=== PATIENT | female | born 1950 | race American Indian/Alaskan Native ===

== ENCOUNTER 2018-07-19 11:47 | Emergency (ER) | payer MEDICARE, OTHER ==
--- NOTE | 2018-07-19 12:35 | Emergency Department Report ---
ED General Adult HPI - General Chief complaint: High BP Stated complaint: HYPERTENSION Time Seen by Provider: 07/19/18 12:35 Source: patient Mode of arrival: Ambulatory Limitations: No Limitations - History of Present Illness Initial comments: Patient is 67-year-old female with a emergency room for management of her high blood pressure. Patient sent here by her primary care due to her blood pressure being over 210 systolic and over 110 diastolic. Patient's initial complaint of going to her primary care was vaginal itching. Patient denies chest pain shortness of breath. Patient denies any physical symptoms except for headache. He states that headache for one week and is 2 out of 10. Patient states that her blood pressure medication for about 6 or 7 months. -: Gradual Consistency: constant Improves with: medication, rest Worsens with: movement Associated Symptoms: headaches. denies: confusion, chest pain, cough, diaphoresis, fever/chills, loss of appetite, malaise, nausea/vomiting, rash, seizure, shortness of breath, syncope, weakness Treatments Prior to Arrival: none - Related Data Previous Rx's Medication Instructions Recorded Last Taken Type Losartan Potassium 50 mg PO DAILY #14 tablet 07/19/18 Unknown Rx cloNIDine [Catapres] 0.2 mg PO BID #28 tablet 07/19/18 Unknown Rx hydroCHLOROthiazide [HCTZ] 25 mg PO QDAY #14 tablet 07/19/18 Unknown Rx Allergies Allergy/AdvReac Type Severity Reaction Status Date / Time Latex, Natural Rubber Allergy Rash Verified 07/19/18 12:14 nickel Allergy Rash Verified 10/05/14 08:20 ED Review of Systems ROS: Stated complaint: HYPERTENSION Other details as noted in HPI Constitutional: denies: chills, fever Eyes: denies: eye pain, eye discharge, vision change ENT: denies: ear pain, throat pain Respiratory: denies: cough, shortness of breath, wheezing Cardiovascular: denies: chest pain, palpitations Endocrine: no symptoms reported Gastrointestinal: denies: abdominal pain, nausea, diarrhea Genitourinary: denies: urgency, dysuria, discharge Musculoskeletal: denies: back pain, joint swelling, arthralgia Skin: denies: rash, lesions Neurological: headache. denies: weakness, paresthesias Psychiatric: denies: anxiety, depression Hematological/Lymphatic: denies: easy bleeding, easy bruising ED Past Medical Hx - Past Medical History Previous Medical History?: Yes Hx Hypertension: Yes Hx CVA: No Hx Heart Attack/AMI: No Hx Congestive Heart Failure: No Hx Diabetes: No Hx Deep Vein Thrombosis: No Hx Pulmonary Embolism: No Hx GERD: No Hx Liver Disease: No Hx Renal Disease: No Hx Sickle Cell Disease: No Hx Arthritis: No Hx Headaches / Migraines: No Hx Seizures: No Hx Kidney Stones: No Hx Psychiatric Treatment: No Hx Asthma: No Hx COPD: No Hx Tuberculosis: No Hx Dementia: No Hx HIV: No - Surgical History Past Surgical History?: Yes Hx Coronary Stent: No Hx Open Heart Surgery: No Hx Pacemaker: No Hx Internal Defibrillator: No Hx Cholecystectomy: No Hx Appendectomy: No Hx Breast Surgery: No Additional Surgical History: TUBAL LIGATION. TONSILLECTOMY - Family History Family history: no significant - Social History Smoking Status: Never Smoker Substance Use Type: Alcohol - Medications Home Medications: Home Medications Medication Instructions Recorded Confirmed Last Taken Type Losartan Potassium 50 mg PO DAILY #14 tablet 07/19/18 Unknown Rx cloNIDine [Catapres] 0.2 mg PO BID #28 tablet 07/19/18 Unknown Rx hydroCHLOROthiazide [HCTZ] 25 mg PO QDAY #14 tablet 07/19/18 Unknown Rx ED Physical Exam - General Limitations: No Limitations General appearance: alert, in no apparent distress - Head Head exam: Present: atraumatic, normocephalic - Eye Eye exam: Present: normal appearance - ENT ENT exam: Present: mucous membranes moist - Neck Neck exam: Present: normal inspection - Respiratory Respiratory exam: Present: normal lung sounds bilaterally. Absent: respiratory distress - Cardiovascular Cardiovascular Exam: Present: regular rate, normal rhythm. Absent: systolic murmur, diastolic murmur, rubs, gallop - GI/Abdominal GI/Abdominal exam: Present: soft, normal bowel sounds - Extremities Exam Extremities exam: Present: normal inspection - Back Exam Back exam: Present: normal inspection - Neurological Exam Neurological exam: Present: alert, oriented X3 - Psychiatric Psychiatric exam: Present: normal affect, normal mood - Skin Skin exam: Present: warm, dry, intact, normal color. Absent: rash ED Course Vital Signs 07/19/18 07/19/18 07/19/18 12:14 12:58 13:00 Temperature 98.1 F Pulse Rate 111 H 95 H 93 H Respiratory 18 13 15 Rate Blood Pressure 263/148 220/115 O2 Sat by Pulse 97 98 96 Oximetry 07/19/18 07/19/18 07/19/18 13:09 13:16 13:30 Temperature Pulse Rate 96 H 86 92 H Respiratory 16 18 Rate Blood Pressure 220/114 203/100 O2 Sat by Pulse 94 94 Oximetry 07/19/18 07/19/18 14:32 15:47 Temperature Pulse Rate 84 80 Respiratory Rate Blood Pressure 216/96 208/92 O2 Sat by Pulse Oximetry - Reevaluation(s) Reevaluation #1: Patient's blood pressure significantly high. Patient will be given medications and we will continue to monitor blood pressure. 07/19/18 12:35 Blood pressure still elevated. Patient will be given a dose of labetalol 07/19/18 14:44 Patient's blood pressure still elevated. Patient will be given clonidine 0.2 mg. Patient states her headache is gone 07/19/18 15:41 Patient's current blood pressure is 186/109. Patient states she is feeling better. Patient is stable for discharge. Patient was discharged home. Medication instructions on how to take her meds. Patient given return to ER instructions. Patient given discharge instructions. Patient was understanding of all instructions. She instructed to monitor blood pressure 3 times a day 07/19/18 15:50 Current blood pressure is 180/105 07/19/18 16:14 ED Medical Decision Making - Lab Data Result diagrams: 07/19/18 13:37 07/19/18 13:37 - Radiology Data Radiology results: report reviewed ct head - nl. CT HEAD WITHOUT CONTRAST: HISTORY: Headache, hypertension. TECHNIQUE: Sequential 2.5mm CT images. COMPARISON: none. FINDINGS: Cerebral Parenchyma: Within normal limits. Cerebellum: Within normal limits. Brainstem: Within normal limits. Ventricles: Normal. Sella: Normal. Extra-axial spaces: Normal. Basal Cisterns: Normal. Intracranial Hemorrhage: None. Midline Shift: None. Calvarium: Normal. Sinuses: Normal. Mastoid Air Cells: Normal. Visualized Orbits: Normal. IMPRESSION: Cranial CT scan within normal limits. Transcribed By: TTR Dictated By: YAMILE CROCKETT JR, MD Electronically Authenticated By: YAMILE CROCKETT JR, MD Signed Date/Time: 07/19/18 2723 - Medical Decision Making Patient is 67-year-old female that presents with elevated blood pressure and headache. Patient is noncompliant with her blood pressure medications for 6 months. Patient given multiple medications and her blood pressure finally improved. Patient will be given clonidine and hydrochlorothiazide which are her old blood pressure medications that she stopped 6 months ago. Patient also given losartan 50 mg. Patient given a new primary care's information. Patient labs unremarkable. Discussed all results with patient. - Differential Diagnosis high blood pressure. Noncompliance. Headache. Critical care attestation.: If time is entered above; I have spent that time in minutes in the direct care of this critically ill patient, excluding procedure time. ED Disposition Clinical Impression: Hypertension Qualifiers: Hypertension type: essential hypertension Qualified Code(s): I10 - Essential (primary) hypertension Headache Qualifiers: Headache type: unspecified Headache chronicity pattern: acute headache In tractability: not intractable Qualified Code(s): R51 - Headache Disposition: DC- TO HOME OR SELFCARE Is pt being admited?: No Does the pt Need Aspirin: No Condition: Stable Instructions: Hypertension (ED) Additional Instructions: Patient to follow-up with primary care in 2-3 days. Patient to follow-up with Dr. Coello. Patient to return to ER if condition worsens. Patient to take meds as directed. Patient is a low-salt heart healthy diet. Patient to rest. Patient increase water. Prescriptions: cloNIDine [Catapres] 0.2 mg PO BID #28 tablet hydroCHLOROthiazide [HCTZ] 25 mg PO QDAY #14 tablet Losartan Potassium 50 mg PO DAILY #14 tablet Referrals: PRIMARY MD ACOSTA [Primary Care Provider] - 2-3 Days JFE COELLO MD [Staff Physician] - 2-3 Days Time of Disposition: 16:14
[2018-07-19] MEDS ORDERED: NORMODYNE IV ONE ×2 (13:04→14:29)
[2018-07-19 13:51] LABS: Hematocrit 40.8 % (30.3-42.9); Hemoglobin 13.6 gm/dl (10.1-14.3); Mean Corpuscular HGB Conc 33 % (30-34); Mean Corpuscular Volume 88 fl (79-97); Platelet Count 254 K/mm3 (140-440); Red Blood Count 4.62 M/mm3 (3.65-5.03); Red Cell Distribution Width 14.6 % (13.2-15.2)
[2018-07-19 14:08] LABS: Alanine Aminotransferase 20 units/L (7-56); Albumin 3.9 g/dL (3.9-5); BUN/Creatinine Ratio 12; Blood Urea Nitrogen 12 mg/dL (7-17); Calcium 9.6 mg/dL (8.4-10.2); Hemolysis Index 32
[2018-07-19 14:12] LABS: Bilirubin,Urine NEG (Negative); Blood,Urine SM (Negative); Color,Urine Yellow (Yellow); Mucus,Urine FEW /HPF; Protein,Urine <15 mg/dL mg/dL (Negative); Urobilinogen,Urine < 2.0 mg/dL (<2.0)
--- NOTE | 2018-07-19 14:54 | Cat Scan Report ---
CT HEAD WITHOUT CONTRAST: HISTORY: Headache, hypertension. TECHNIQUE: Sequential 2.5mm CT images. COMPARISON: none. FINDINGS: Cerebral Parenchyma: Within normal limits. Cerebellum: Within normal limits. Brainstem: Within normal limits. Ventricles: Normal. Sella: Normal. Extra-axial spaces: Normal. Basal Cisterns: Normal. Intracranial Hemorrhage: None. Midline Shift: None. Calvarium: Normal. Sinuses: Normal. Mastoid Air Cells: Normal. Visualized Orbits: Normal. IMPRESSION: Cranial CT scan within normal limits.
[2018-07-19] MEDS ORDERED: APRESOLINE IV ONE (15:35)
[2018-07-19] MEDS ORDERED: CATAPRES PO ONE (15:40)
[2018-07-19 16:31] VITALS: BP 180/105
== END 2018-07-19 16:32 | disposition home or self-care (01) ==
LOC: ED 11:47
DX: I10 Essential (primary) hypertension (principal); N89.8 Other specified noninflammatory disorders of vagina; Z98.51 Tubal ligation status; Z90.89 Acquired absence of other organs; Z91.040 Latex allergy status; Z91.048 Other nonmedicinal substance allergy status
CPT/HCPCS: 36415; 70450; 80053; 81001; 85027; 93005; 93010; 96374; 96376

== ENCOUNTER 2018-11-20 19:36 | Emergency (ER) | payer OTHER ==
--- NOTE | 2018-11-20 21:00 | Emergency Department Report ---
Blank Doc - Documentation Documentation: This is a 68-year-old female that presents with right knee pain and swelling. Patient was sent by PCP to r/o DVT. Stated was running and felt a knee pop. Denies any trauma. This initial assessment/diagnostic orders/clinical plan/treatment(s) is/are subject to change based on patient's health status, clinical progression and re- assessment by fellow clinical providers in the ED. Further treatment and workup at subsequent clinical providers discretion. Patient/guardians urged not to elope from the ED as their condition may be serious if not clinically assessed and managed. Initial orders include: 1- Patient sent to [facility] for further evaluation and treatment 2- knee xray 3- dopper US for r/o DVT
--- NOTE | 2018-11-20 22:46 | XRay Report ---
PROCEDURE: XR KNEE 3V RT TECHNIQUE: 3 views of the right knee obtained. HISTORY: knee pain and swelling COMPARISONS: None FINDINGS: No acute fracture or dislocation. Mild osteoarthritis of the medial compartment. Small to moderate joint effusion noted. IMPRESSION: No acute fracture or dislocation. Mild osteoarthritis of the medial compartment. Small to moderate joint effusion noted. If symptoms persist or worsen, MRI could be considered for further evaluation to exclude ligamentous or meniscal injury.. This document is electronically signed by Apoorva Harris MD., Nov 20 2018 10:44:21 PM ET
[2018-11-21] MEDS ORDERED: TORADOL IM ONE (00:13)
[2018-11-21] MEDS ORDERED: PERCOCET 5/325 PO ONE (00:13)
--- NOTE | 2018-11-21 01:41 | Emergency Department Report ---
ED Lower Extremity HPI - General Chief Complaint: Extremity Injury, Lower Stated Complaint: SWELLING/PAIN RT KNEE Time Seen by Provider: 11/20/18 20:57 Source: patient, family Mode of arrival: Wheelchair Limitations: No Limitations - History of Present Illness Initial Comments: Patient is a 68-year-old female with a history of hypertension and presents with a complaint of acute onset severe persistent right knee pain and swelling after she strained the right knee and heard a "pop" sound on right knee joint when at the gymnasium over 1 week ago. Patient states that in the coarse of following days the right knee pain has worsened and the swelling has increased. Patient states that the pain is worse with any active range of motion of right knee and right leg. Patient states that she was evaluated by her primary care physician who advised her to come to the ED for evaluation using the Doppler ultrasound of right leg to rule out a DVT. Patient however denies shortness of breath, chest pain, dizziness, nausea, vomiting, numbness and tingling of her right lower leg, hip pain or nausea and vomiting. MD Complaint: knee injury (right) -: Sudden, days(s) (10) Injury: Knee: Right (pain, swelling) Type of Injury: hyperflexion Place: other (Gymnasium) Severity: severe Severity scale (0 -10): 7 Improves With: immobilization Worsens With: weight bearing, movement, palpation Context: other (twisted the right knee) Associated Symptoms: snap/pop sensation, swelling, able to partially bear weight, ambulatory. denies: numbness, tingling, unable to bear weight Treatments Prior to Arrival: NSAIDS - Related Data Previous Rx's Medication Instructions Recorded Last Taken Type Losartan Potassium 50 mg PO DAILY #14 tablet 07/19/18 Unknown Rx cloNIDine [Catapres] 0.2 mg PO BID #28 tablet 07/19/18 Unknown Rx hydroCHLOROthiazide [HCTZ] 25 mg PO QDAY #14 tablet 07/19/18 Unknown Rx Baclofen [Lioresal] 10 mg PO Q8H PRN #15 tablet 11/21/18 Unknown Rx predniSONE [Deltasone] 60 mg PO QDAY #15 tab 11/21/18 Unknown Rx traMADol [Ultram] 50 mg PO Q6HR PRN 3 Days #15 tablet 11/21/18 Unknown Rx Allergies Allergy/AdvReac Type Severity Reaction Status Date / Time Latex, Natural Rubber Allergy Rash Verified 07/19/18 12:14 milk Allergy Unknown Verified 11/20/18 19:47 nickel Allergy Rash Verified 10/05/14 08:20 ED Review of Systems ROS: Stated complaint: SWELLING/PAIN RT KNEE Other details as noted in HPI Comment: All other systems reviewed and negative Constitutional: no symptoms reported, see HPI. denies: chills, diaphoresis, fever, malaise Eyes: as per HPI. denies: eye discharge, vision change ENT: as per HPI. denies: ear pain, throat pain, dental pain, hearing loss Respiratory: no symptoms reported, see HPI. denies: cough, shortness of breath, SOB with exertion, SOB at rest, stridor, wheezing Cardiovascular: as per HPI. denies: chest pain, palpitations, dyspnea on exertion, orthopnea, edema, paroxysmal nocturnal dyspnea Endocrine: no symptoms reported, see HPI. denies: excessive sweating, flushing, intolerance to cold, intolerance to heat, increased hunger, increased thirst, increased urine, unexplained weight gain, unexplained weight loss Gastrointestinal: as per HPI. denies: abdominal pain, nausea, vomiting, diarrhea, constipation, hematemesis Genitourinary: as per HPI. denies: urgency, dysuria, frequency, hematuria, abnormal menses, dyspareunia, other Musculoskeletal: as per HPI, joint swelling (right knee), arthralgia (right knee). denies: back pain Skin: as per HPI. denies: rash, lesions, change in color, change in hair/nails, pruritus Neurological: as per HPI. denies: headache, weakness, numbness, paresthesias, confusion, abnormal gait, vertigo, other Psychiatric: as per HPI. denies: anxiety, depression, auditory hallucinations Hematological/Lymphatic: as per HPI ED Past Medical Hx - Past Medical History Hx Hypertension: Yes Hx CVA: No Hx Heart Attack/AMI: No Hx Congestive Heart Failure: No Hx Diabetes: No Hx Deep Vein Thrombosis: No Hx Pulmonary Embolism: No Hx GERD: No Hx Liver Disease: No Hx Renal Disease: No Hx Sickle Cell Disease: No Hx Arthritis: No Hx Headaches / Migraines: No Hx Seizures: No Hx Kidney Stones: No Hx Psychiatric Treatment: No Hx Asthma: No Hx COPD: No Hx Tuberculosis: No Hx Dementia: No Hx HIV: No - Surgical History Hx Coronary Stent: No Hx Open Heart Surgery: No Hx Pacemaker: No Hx Internal Defibrillator: No Hx Cholecystectomy: No Hx Appendectomy: No Hx Breast Surgery: No Additional Surgical History: TUBAL LIGATION. TONSILLECTOMY - Social History Smoking Status: Never Smoker Substance Use Type: None - Medications Home Medications: Home Medications Medication Instructions Recorded Confirmed Last Taken Type Losartan Potassium 50 mg PO DAILY #14 tablet 07/19/18 Unknown Rx cloNIDine [Catapres] 0.2 mg PO BID #28 tablet 07/19/18 Unknown Rx hydroCHLOROthiazide [HCTZ] 25 mg PO QDAY #14 tablet 07/19/18 Unknown Rx Baclofen [Lioresal] 10 mg PO Q8H PRN #15 tablet 11/21/18 Unknown Rx predniSONE [Deltasone] 60 mg PO QDAY #15 tab 11/21/18 Unknown Rx traMADol [Ultram] 50 mg PO Q6HR PRN 3 Days #15 tablet 11/21/18 Unknown Rx ED Physical Exam - General Limitations: No Limitations General appearance: alert, in no apparent distress - Head Head exam: Present: atraumatic, normocephalic, normal inspection - Eye Eye exam: Present: normal appearance, PERRL, EOMI. Absent: scleral icterus, conjunctival injection, periorbital swelling, periorbital tenderness Pupils: Present: normal accommodation. Absent: unequal, mydriatic - ENT ENT exam: Present: normal exam, normal orophraynx, mucous membranes moist, TM's normal bilaterally, normal external ear exam - Neck Neck exam: Present: normal inspection, full ROM. Absent: tenderness, lymphadenopathy, thyromegaly - Respiratory Respiratory exam: Present: normal lung sounds bilaterally. Absent: respiratory distress, wheezes, rales, rhonchi, chest wall tenderness, accessory muscle use, decreased breath sounds, prolonged expiratory - Cardiovascular Cardiovascular Exam: Present: regular rate, normal rhythm, normal heart sounds - GI/Abdominal GI/Abdominal exam: Present: soft, normal bowel sounds. Absent: distended, tenderness, rebound, hyperactive bowel sounds, organomegaly - Rectal Rectal exam: Present: deferred - Extremities Exam Extremities exam: Present: normal inspection, tenderness (right knee), normal capillary refill, joint swelling (right knee). Absent: full ROM (due to severe pain), calf tenderness - Back Exam Back exam: Present: normal inspection, full ROM. Absent: tenderness, CVA tenderness (R), CVA tenderness (L), muscle spasm, paraspinal tenderness, vertebral tenderness - Neurological Exam Neurological exam: Present: alert, oriented X3, CN II-XII intact, normal gait, reflexes normal - Psychiatric Psychiatric exam: Present: normal affect - Skin Skin exam: Present: warm, dry, intact, normal color ED Course Vital Signs 11/20/18 11/20/18 20:08 20:57 Temperature 98.0 F 98.0 F Pulse Rate 69 69 Respiratory 18 18 Rate Blood Pressure 197/90 197/90 O2 Sat by Pulse 97 97 Oximetry - Reevaluation(s) Reevaluation #1: 11/21/18 01:45 Patient is alert and oriented 3 and is nontender distress. Patient was however hypertensive in triage. Patient was treated for pain in the ED and right knee x-ray shows no acute fractures or subluxations but mild degenerative joint disease. The patient right knee was splinted with David wrap and also given crutches to use as needed at home. Patient essentially normal and medications and also received an outpatient referral for Doppler ultrasound of lower extremities and the next day. Patient advised to return to the ED immediately if symptoms get worse. ED Lower Extremity MDM - Radiology Data Radiology results: report reviewed, image reviewed Right knee x-ray shows no acute fractures or subluxations. - Medical Decision Making Patient is alert and oriented 3 and is nontender distress. Patient was however hypertensive in triage. Patient was treated for pain in the ED and right knee x-ray shows no acute fractures or subluxations but mild degenerative joint disease. The patient right knee was splinted with David wrap and also given crutches to use as needed at home. Patient essentially normal and medications and also received an outpatient referral for Doppler ultrasound of lower extremities and the next day. Patient advised to return to the ED immediately if symptoms get worse. - Differential Diagnosis right knee sprain, right knee fracture, right leg DVT Critical care attestation.: If time is entered above; I have spent that time in minutes in the direct care of this critically ill patient, excluding procedure time. ED Disposition Clinical Impression: Sprain of right knee/leg Qualifiers: Encounter type: initial encounter Qualified Code(s): S83.91XA - Sprain of unspecified site of right knee, initial encounter Right knee DJD Qualifiers: Osteoarthritis type: unspecified Qualified Code(s): M17.11 - Unilateral primary osteoarthritis, right knee Contusion of right knee and lower leg Qualifiers: Encounter type: initial encounter Qualified Code(s): S80.01XA - Contusion of right knee, initial encounter; S80.11XA - Contusion of right lower leg, initial encounter Disposition: TO HOME OR SELFCARE Is pt being admited?: No Does the pt Need Aspirin: No Condition: Stable Instructions: Knee Sprain (ED), Contusion in Adults (ED), Muscle Spasm (ED), Osteoarthritis (ED) Additional Instructions: Take medications with food, drink plenty of fluids and follow-up with your primary care physician in 5-7 days for reevaluation. Contact the number provided to know when to come back today Hospital for the Doppler ultrasound studies of the lower extremities. Otherwise return to the ED immediately if symptoms get worse. Prescriptions: predniSONE [Deltasone] 60 mg PO QDAY #15 tab Baclofen [Lioresal] 10 mg PO Q8H PRN #15 tablet PRN Reason: Spasms traMADol [Ultram] 50 mg PO Q6HR PRN 3 Days #15 tablet PRN Reason: Pain Referrals: YARED HER MD [Primary Care Provider] - 3-5 Days Time of Disposition: 01:50 Print Language: CITIZEN OF [place]
[2018-11-21 02:43] VITALS: BP 168/82
== END 2018-11-21 02:32 | disposition home or self-care (01) ==
LOC: ED 19:36
DX: S83.91XA Sprain of unspecified site of right knee, initial encounter (principal); S80.01XA Contusion of right knee, initial encounter; S80.11XA Contusion of right lower leg, initial encounter; M17.11 Unilateral primary osteoarthritis, right knee; I10 Essential (primary) hypertension; Z98.51 Tubal ligation status; Z90.89 Acquired absence of other organs; Z91.040 Latex allergy status; Z91.011 Allergy to milk products; Z91.048 Other nonmedicinal substance allergy status; X58.XXXA Exposure to other specified factors, initial encounter; Y93.89 Activity, other specified; Y92.39 Other specified sports and athletic area as the place of occurrence of the external cause; Y99.8 Other external cause status
CPT/HCPCS: 73562; 96372; 99284; J1885

== ENCOUNTER 2019-04-22 09:27 | Inpatient (IN) | payer MEDICARE, OTHER ==
[2019-04-22] MEDS ORDERED: ASPIRIN PO ONE (09:33)
[2019-04-22 10:04] LABS: Basophils # (Auto) 0.1 K/mm3 (0.0-0.1); Basophils % (Auto) 0.8 % (0.0-1.8); Eosinophils # (Auto) 0.1 K/mm3 (0.0-0.4); Eosinophils % (Auto) 0.5 % (0.0-4.3); Hematocrit 41.5 % (30.3-42.9); Hemoglobin 13.7 gm/dl (10.1-14.3); Lymphocytes # (Auto) 2.9 K/mm3 (1.2-5.4); Lymphocytes % (Auto) 29.1 % (13.4-35.0); Mean Corpuscular HGB Conc 33 % (30-34); Mean Corpuscular Volume 88 fl (79-97); Monocytes # (Auto) 0.9 K/mm3 (0.0-0.8); Monocytes % (Auto) 8.9 % (0.0-7.3); Platelet Count 274 K/mm3 (140-440); Red Blood Count 4.73 M/mm3 (3.65-5.03); Red Cell Distribution Width 14.7 % (13.2-15.2)
--- NOTE | 2019-04-22 10:14 | Emergency Department Report ---
ED Chest Pain HPI - General Chief Complaint: Chest Pain Stated Complaint: CHEST PAIN/ABN EKG Time Seen by Provider: 04/22/19 10:12 Source: patient Mode of arrival: Ambulatory Limitations: No Limitations - History of Present Illness Initial Comments: 68-year-old -[place] female patient with history of uncontrolled hypertension complains of chest pain 2 days. She was sent here from urgent care due to her symptoms and abnormal EKG. Patient states the pain is a dull pressure that is constant and left sided and that radiates down her left arm. Positive family history of heart disease in her mother. She denies any shortness of breath. She admits to recent long travel via 4 hour car ride. She denies history of MA/CVA/DVT/PE or lower leg pain or swelling. MD Complaint: chest pain Severity scale (0 -10): 3 Quality: dull, pressure Consistency: constant Improves With: nothing Worsens With: nothing re: denies: nausea, vomting, dyspnea Other Symptoms: denies: cough, fever, syncope Treatments Prior to Arrival: none - Related Data Previous Rx's Medication Instructions Recorded Last Taken Type Losartan Potassium 50 mg PO DAILY #14 tablet 07/19/18 Unknown Rx cloNIDine [Catapres] 0.2 mg PO BID #28 tablet 07/19/18 Unknown Rx hydroCHLOROthiazide [HCTZ] 25 mg PO QDAY #14 tablet 07/19/18 Unknown Rx Baclofen [Lioresal] 10 mg PO Q8H PRN #15 tablet 11/21/18 Unknown Rx predniSONE [Deltasone] 60 mg PO QDAY #15 tab 11/21/18 Unknown Rx traMADol [Ultram] 50 mg PO Q6HR PRN 3 Days #15 tablet 11/21/18 Unknown Rx Allergies Allergy/AdvReac Type Severity Reaction Status Date / Time Latex, Natural Rubber Allergy Rash Verified 04/22/19 10:12 milk Allergy Unknown Verified 04/22/19 10:12 nickel Allergy Rash Verified 04/22/19 10:12 Heart Score - HEART Score History: Slightly suspicious EKG: Non-specific Age: > 65 Risk factors: 1-2 risk factors Troponin: < normal limit HEART Score: 4 - Critical Actions Critical Actions: 4-6 pts:12-16.6% risk of adverse cardiac event. Should be admitted ED Review of Systems ROS: Stated complaint: CHEST PAIN/ABN EKG Other details as noted in HPI Comment: All other systems reviewed and negative Constitutional: no symptoms reported Respiratory: denies: shortness of breath, SOB with exertion, SOB at rest Cardiovascular: chest pain. denies: palpitations, edema, syncope Gastrointestinal: as per HPI ED Past Medical Hx - Past Medical History Previous Medical History?: Yes Hx Hypertension: Yes Hx CVA: No Hx Heart Attack/AMI: No Hx Congestive Heart Failure: No Hx Diabetes: No Hx Deep Vein Thrombosis: No Hx Pulmonary Embolism: No Hx GERD: No Hx Liver Disease: No Hx Renal Disease: No Hx Sickle Cell Disease: No Hx Arthritis: No Hx Headaches / Migraines: No Hx Seizures: No Hx Kidney Stones: No Hx Psychiatric Treatment: No Hx Asthma: No Hx COPD: Yes Hx Tuberculosis: No Hx Dementia: No Hx HIV: No Additional medical history: abnormal EKG, Lung problems - Surgical History Past Surgical History?: Yes Hx Coronary Stent: No Hx Open Heart Surgery: No Hx Pacemaker: No Hx Internal Defibrillator: No Hx Cholecystectomy: No Hx Appendectomy: No Hx Breast Surgery: No Additional Surgical History: TUBAL LIGATION. TONSILLECTOMY - Social History Smoking Status: Never Smoker Substance Use Type: Alcohol, Prescribed - Medications Home Medications: Home Medications Medication Instructions Recorded Confirmed Last Taken Type Losartan Potassium 50 mg PO DAILY #14 tablet 07/19/18 Unknown Rx cloNIDine [Catapres] 0.2 mg PO BID #28 tablet 07/19/18 Unknown Rx hydroCHLOROthiazide [HCTZ] 25 mg PO QDAY #14 tablet 07/19/18 Unknown Rx Baclofen [Lioresal] 10 mg PO Q8H PRN #15 tablet 11/21/18 Unknown Rx predniSONE [Deltasone] 60 mg PO QDAY #15 tab 11/21/18 Unknown Rx traMADol [Ultram] 50 mg PO Q6HR PRN 3 Days #15 tablet 11/21/18 Unknown Rx ED Physical Exam - General Limitations: No Limitations General appearance: alert, in no apparent distress - Head Head exam: Present: atraumatic, normocephalic - Eye Eye exam: Present: normal appearance - Neck Neck exam: Present: normal inspection - Respiratory Respiratory exam: Present: normal lung sounds bilaterally. Absent: respiratory distress, wheezes, rales, rhonchi, chest wall tenderness - Cardiovascular Cardiovascular Exam: Present: regular rate, normal rhythm, normal heart sounds. Absent: systolic murmur, diastolic murmur, rubs, gallop - GI/Abdominal GI/Abdominal exam: Present: soft, normal bowel sounds. Absent: distended, tenderness - Extremities Exam Extremities exam: Present: normal inspection, calf tenderness (left ). Absent: pedal edema, joint swelling - Neurological Exam Neurological exam: Present: alert, oriented X3 - Psychiatric Psychiatric exam: Present: normal affect, normal mood - Skin Skin exam: Present: warm, dry, intact, normal color. Absent: rash ED Course Vital Signs 04/22/19 04/22/19 04/22/19 09:28 10:56 11:38 Temperature 98.1 F Pulse Rate 69 80 Respiratory 18 12 Rate Blood Pressure 239/129 187/93 Blood Pressure [Right] O2 Sat by Pulse 97 Oximetry 04/22/19 04/22/19 13:05 14:18 Temperature Pulse Rate 78 74 Respiratory 16 16 Rate Blood Pressure Blood Pressure 215/99 140/81 [Right] O2 Sat by Pulse 98 Oximetry ED Medical Decision Making - Lab Data Result diagrams: 04/22/19 09:44 04/22/19 09:44 Lab Results 04/22/19 04/22/19 04/22/19 Range/Units 09:44 09:44 12:33 WBC 10.0 (4.5-11.0) K/mm3 RBC 4.73 (3.65-5.03) M/mm3 Hgb 13.7 (10.1-14.3) gm/dl Hct 41.5 (30.3-42.9) % MCV 88 (79-97) fl MCH 29 (28-32) pg MCHC 33 (30-34) % RDW 14.7 (13.2-15.2) % Plt Count 274 (140-440) K/mm3 Lymph % (Auto) 29.1 (13.4-35.0) % [place] % (Auto) 8.9 H (0.0-7.3) % Eos % (Auto) 0.5 (0.0-4.3) % Baso % (Auto) 0.8 (0.0-1.8) % Lymph # 2.9 (1.2-5.4) K/mm3 Anderson # 0.9 H (0.0-0.8) K/mm3 Eos # 0.1 (0.0-0.4) K/mm3 Baso # 0.1 (0.0-0.1) K/mm3 Seg Neutrophils % 60.7 (40.0-70.0) % Seg Neutrophils # 6.1 (1.8-7.7) K/mm3 Sodium 144 (137-145) mmol/L Potassium 3.3 L (3.6-5.0) mmol/L Chloride 104.7 (98-107) mmol/L Carbon Dioxide 23 (22-30) mmol/L Anion Gap 20 mmol/L BUN 14 (7-17) mg/dL Creatinine 0.8 (0.7-1.2) mg/dL Estimated GFR > 60 ml/min BUN/Creatinine Ratio 18 % Glucose 98 (65-100) mg/dL Calcium 9.4 (8.4-10.2) mg/dL Troponin T < 0.010 < 0.010 (0.00-0.029) ng/mL - Radiology Data Radiology results: report reviewed CHEST 2 VIEWS INDICATION / CLINICAL INFORMATION: MAIN: Chest Pain FOR 2 DAY. COMPARISON: None available. FINDINGS: SUPPORT DEVICES: None. HEART / MEDIASTINUM: Heart is upper normal size. LUNGS / PLEURA: No significant pulmonary or pleural abnormality. No pneumothorax. ADDITIONAL FINDINGS: No significant additional findings. IMPRESSION: 1. No acute findings. DUPLEX DOPPLER LOWER EXTREMITY VEINS, LEFT INDICATION: pain, recent long travel. TECHNIQUE: Duplex doppler imaging was performed through the veins of the left lower extr emity using venous compression and other maneuvers. COMPARISON: None available. FINDINGS: Common Femoral vein: Negative. Superficial Femoral vein: Negative. Popliteal vein: Negative. Calf veins: Negative. Additional findings: None. IMPRESSION: 1. No sonographic evidence for DVT in the left lower extremity. - Medical Decision Making 68-year-old female here with new onset of chest pain 2 days. Initial and repeat troponin and EKGs are WNL. Chest x-ray is WNL. Heart score = 4. Ultrasound negative for DVT. D-dimer added. Discussed patient with Dr. Alonso, hospitalistpatient to be admitted to hospital for further evaluation. Vitals remain stable. Blood pressure improved, now 140/81. Critical care attestation.: If time is entered above; I have spent that time in minutes in the direct care of this critically ill patient, excluding procedure time. ED Disposition Clinical Impression: Chest pain, Uncontrolled hypertension Disposition: DC-09 OP ADMIT IP TO THIS HOSP Is pt being admited?: Yes Does the pt Need Aspirin: No Condition: Stable
[2019-04-22 10:19] LABS: BUN/Creatinine Ratio 18; Blood Urea Nitrogen 14 mg/dL (7-17); Calcium 9.4 mg/dL (8.4-10.2); Hemolysis Index 4
--- NOTE | 2019-04-22 10:29 | XRay Report ---
CHEST 2 VIEWS INDICATION / CLINICAL INFORMATION: MAIN: Chest Pain FOR 2 DAY. COMPARISON: None available. FINDINGS: SUPPORT DEVICES: None. HEART / MEDIASTINUM: Heart is upper normal size. LUNGS / PLEURA: No significant pulmonary or pleural abnormality. No pneumothorax. ADDITIONAL FINDINGS: No significant additional findings. IMPRESSION: 1. No acute findings. Signer Name: Harjinder Landa MD Signed: 04/22/2019 10:24 AM Workstation Name: [id number]
[2019-04-22] MEDS ORDERED: APRESOLINE IV ONE (10:31)
--- NOTE | 2019-04-22 11:49 | Vascular Lab Report ---
DUPLEX DOPPLER LOWER EXTREMITY VEINS, LEFT INDICATION: pain, recent long travel. TECHNIQUE: Duplex doppler imaging was performed through the veins of the left lower extremity using venous compr ession and other maneuvers. COMPARISON: None available. FINDINGS: Common Femoral vein: Negative. Superficial Femoral vein: Negative. Popliteal vein: Negative. Calf veins: Negative. Additional findings: None. IMPRESSION: 1. No sonographic evidence for DVT in the left lower extremity. Signer Name: Jono Higgins MD Signed: 04/22/2019 11:44 AM Workstation Name: [id number]
[2019-04-22] MEDS ORDERED: K-DUR PO ONE ×2 (13:26→15:18)
[2019-04-22] MEDS ORDERED: TYLENOL PO PRN (21:48)
[2019-04-22] MEDS ORDERED: DILAUDID IV PRN (21:48)
[2019-04-22] MEDS ORDERED: ZOFRAN IV PRN (21:48)
[2019-04-22] MEDS ORDERED: PERCOCET 5/325 PO PRN (21:48)
[2019-04-22] MEDS ORDERED: SODIUM CHLORIDE FLUSH SYRINGE 10 ML IV PRN (21:48)
[2019-04-23] MEDS: PEPCID PO SCH ×3 (01:54→22:09)
[2019-04-23] MEDS: CATAPRES PO SCH ×2 (01:54→13:07)
[2019-04-23] MEDS: NORVASC PO SCH ×2 (01:54→13:08)
[2019-04-23] MEDS: SODIUM CHLORIDE FLUSH SYRINGE 10 ML IV SCH ×3 (01:55→22:10)
[2019-04-23 05:43] LABS: Basophils # (Auto) 0.1 K/mm3 (0.0-0.1); Basophils % (Auto) 1.1 % (0.0-1.8); Eosinophils # (Auto) 0.2 K/mm3 (0.0-0.4); Eosinophils % (Auto) 3.3 % (0.0-4.3); Hematocrit 38.3 % (30.3-42.9); Hemoglobin 12.9 gm/dl (10.1-14.3); Lymphocytes # (Auto) 3.2 K/mm3 (1.2-5.4); Lymphocytes % (Auto) 46.7 % (13.4-35.0); Mean Corpuscular HGB Conc 34 % (30-34); Mean Corpuscular Volume 87 fl (79-97); Monocytes # (Auto) 0.6 K/mm3 (0.0-0.8); Monocytes % (Auto) 8.6 % (0.0-7.3); Platelet Count 273 K/mm3 (140-440)
[2019-04-23 06:12] LABS: Alanine Aminotransferase 10 units/L (7-56); Albumin 3.7 g/dL (3.9-5); BUN/Creatinine Ratio 17; Blood Urea Nitrogen 15 mg/dL (7-17); Hemolysis Index 2
--- NOTE | 2019-04-23 06:55 | Event Note ---
Date: 04/22/19 See H/p in reports Chest pain-R/o LA
[2019-04-23] MEDS ORDERED: APRESOLINE IV PRN (07:00)
[2019-04-23] MEDS ORDERED: K-DUR PO NR (07:12)
--- NOTE | 2019-04-23 08:01 | History and Physical Report ---
CHIEF COMPLAINT: Chest pain for 2 days. HISTORY OF PRESENT ILLNESS: A 68-year-old -[place] female with history of hypertension, comes in for left-sided chest pain for 2 days. The patient was sent from urgent care for abnormal EKG. Chest pain is retrosternal, dull in character, radiates down the left arm. No diaphoresis. No shortness of breath. The patient had a recent long [address] No history of [place] or coronary artery disease. PAST MEDICAL HISTORY: As mentioned, hypertension and COPD. PAST SURGICAL HISTORY: Tubal ligation and tonsillectomy. SOCIAL HISTORY: Does not smoke. No alcohol, no recreational drugs. FAMILY HISTORY: Hypertension. REVIEW OF SYSTEMS: Significant for chest pain, which is retrosternal and high blood pressure. Otherwise, review of systems negative. PHYSICAL EXAMINATION: GENERAL: Elderly female, cooperative during examination. VITAL SIGNS: Initial blood pressure was 239/129, temperature is 98.1, pulse is 69, respirations 18. HEENT: Unremarkable. Pupils equal and reactive. NECK: Supple, no lymphadenopathy, no thyromegaly. LUNGS: Clear to auscultation and percussion. Good air entry. CARDIOVASCULAR SYSTEM: S1, S2 heard. No gallop, no murmur, no rub. Apical impulse in left fifth intercostal space and midclavicular line. ABDOMEN: Soft and benign. No hepatosplenomegaly. No guarding, no rigidity. Hernial orifices are normal. EXTREMITIES: Good pedal pulses. No pedal edema. CENTRAL NERVOUS SYSTEM: Alert and oriented x 4, nonfocal exam. SKIN: Normal. LABORATORY DATA: CBC is normal. Electrolytes are normal. Potassium is 3.3. Troponin is less than 0.010. EKG shows sinus rhythm, heart rate of 78 per minute, left ventricular hypertrophy. Chest x-ray, no acute findings. Lower extremity duplex scan, no acute findings. ASSESSMENT AND PLAN: 1. Hypertensive emergency. The patient initiated on IV hydralazine 10 mg q.3h p.r.n. Also, amlodipine 10 mg once a day, clonidine 0.2 b.i.d. 2. Chest pain, rule out myocardial infarction, chest pain protocol. Serial troponins. Exercise stress test in the morning. Cardiology consult requested. 3. Deep venous thrombosis prophylaxis, Lovenox 40 mg subcutaneously daily and gastrointestinal prophylaxis initiated. JOB# [id number] MAURO/ABHINAV VEGA
--- NOTE | 2019-04-23 13:03 | Discharge Summary ---
Providers - Providers Date of Admission: 04/22/19 13:35 Date of discharge: 04/24/19 Attending physician: SHAYNA ROBB 04/22/19 21:48 Consult to Physician [CONS] Routine Comment: Consulting Provider: MAURICE SILVA Physician Instructions: Reason For Exam: Chest pain Primary care physician: EFRAIN BRIONES MD Hospitalization Condition: Stable Pertinent studies: Chest x-ray Lower extremity Doppler MPS stress test Hospital course: 68-year-old female with a history of hypertension presented to the ER with complaints of Retrosternal chest pain for 4 today's . Patient was evaluated in the ER, initial cardiac enzyme and EKG was unremarkable, chest x-ray showed no infiltrates. Patient was admitted and underwent myocardial stress test which was normal. Her blood pressure was monitored and resumed on home medications, suggested BP meds to better control her blood pressure. Patient was then discharged home in stable condition with outpatient follow-up. Discharge diagnosis: Atypical chest pain, likely due to GERD and uncontrolled blood pressure Hypertensive emergency, blood pressure was stable on discharge Disposition: DC/TX-06 HOME UNDER HOME [facility] Time spent for discharge: 34 minutes Core Measure Documentation - Palliative Care Palliative Care/ Comfort Measures: Not Applicable - Core Measures Any of the following diagnoses?: none Exam - Constitutional Vitals: Temp Pulse Resp BP Pulse Ox 98.0 F 62 22 139/69 98 04/23/19 03:46 04/23/19 08:55 04/23/19 08:16 04/23/19 03:46 04/23/19 03:46 General appearance: Present: no acute distress, well-nourished - EENT Eyes: Present: PERRL ENT: hearing intact, clear oral mucosa - Neck Neck: Present: supple, normal ROM - Respiratory Respiratory effort: normal Respiratory: bilateral: CTA - Cardiovascular Heart Sounds: Present: S1 & S2. Absent: rub, click - Extremities Extremities: pulses symmetrical, No edema Peripheral Pulses: within normal limits - Abdominal General gastrointestinal: Present: soft, non-tender, non-distended, normal bowel sounds - Integumentary Integumentary: Present: clear, warm, dry - Musculoskeletal Musculoskeletal: gait normal, strength equal bilaterally - Psychiatric Psychiatric: appropriate mood/affect, intact judgment & insight - Neurologic Neurologic: CNII-XII intact, moves all extremities Plan Activity: advance as tolerated Weight Bearing Status: Weight Bear as Tolerated Diet: low fat, low salt Follow up with: PRIMARY CARE, [Referring] - 3-5 Days Prescriptions: Aspirin EC [Halfprin EC] 81 mg PO QDAY #30 tablet. Pantoprazole [Protonix] 40 mg PO QDAY #30 tablet
[2019-04-23] MEDS: ASPIRIN PO SCH (13:18)
[2019-04-23] MEDS: APRESOLINE PO SCH ×2 (13:18→22:09)
--- NOTE | 2019-04-23 13:31 | Progress Note ---
Assessment and Plan Chest pain, rule out ACS - Continue to trend troponin, aspirin and statin - Stressed is postponed for tomorrow because of elevated blood pressure - Continue to monitor for now, nitroglycerin patch as needed Hypertensive emergency - Resume home meds - amlodipine and clonidine - Hydralazine IV as needed, also added by mouth hydralazine 50 every 8 hours - We will also adjust medications Obesity, diet and exercise recommendation when clinically stable DVT prophylaxis, on Lovenox Subjective Date of service: 04/23/19 Interval history: Patient seen and examined. Medical records and medication list reviewed. No acute event overnight noted by the RN. Patient is tolerating diet. Continue to stress to discuss her systole blood pressure was about 200 Discussed plan of care at bedside with patient. Objective - Exam Narrative Exam: GENERAL: well-developed and obese -[place] female lying on bed appeared to be in no discomfort. HEENT: Normocephalic. Atraumatic. No conjunctival congestion or icterus. Patient has moist mucous membranes. NECK: Supple. Trachea midline. CHEST/LUNGS: Clear to auscultated bilaterally, breathing nonlabored. No wheezes crackles or rhonchi. HEART/CARDIOVASCULAR: Regular in rate and rhythm. S1 and S2 positive. ABDOMEN: Abdomen is soft, nontender. Patient has normal bowel sounds. SKIN: There is no rash. Warm and dry. NEURO: No focal motor deficit. Follows command. MUSCULOSKELETAL: No joint effusion or tenderness. EXTRIMITY: No edema, no cyanosis or clubbing. PSYCH: Cooperative. - Constitutional Vitals: Vital Signs - 12hr 04/23/19 04/23/19 04/23/19 03:46 06:00 08:16 Temperature 98.0 F Pulse Rate 61 61 Respiratory 18 22 Rate Blood Pressure 139/69 O2 Sat by Pulse 98 Oximetry 04/23/19 08:55 Temperature Pulse Rate 62 Respiratory Rate Blood Pressure O2 Sat by Pulse Oximetry - Labs CBC & Chem 7: 04/23/19 05:00 04/23/19 05:00 Labs: Abnormal lab results 04/22/19 04/23/19 04/23/19 Range/Units 20:39 05:00 05:00 Lymph % (Auto) 46.7 H (13.4-35.0) % [place] % (Auto) 8.6 H (0.0-7.3) % D-Dimer 253.93 H (0-234) ng/mlDDU Albumin 3.7 L (3.9-5) g/dL
--- NOTE | 2019-04-23 13:52 | Event Note ---
Date: 04/23/19 Detailed cardiology consultation dictated. Stress test cancelled this morning due to hypertensive urgency. Will optimize BPs and reattempt lexiscan MPI stress test in AM pending BPs are improved. NPO after MN. Idris BURNETT NP / DR. LONG
[2019-04-23] MEDS ORDERED: CATAPRES PO SCH (22:00)
[2019-04-23] MEDS ORDERED: LOVENOX SUB-Q SCH (22:00)
--- NOTE | 2019-04-24 01:18 | Consultation ---
REQUESTING PHYSICIN: Dr. Winchester. HISTORY OF PRESENT ILLNESS: This is a 68-year-old -[place] female who is now presenting to the hospital with complaints of chest pain of 2 days' duration for further evaluation and management. History is now obtained from the patient. The patient states that she is known to have hypertension and chronic obstructive pulmonary disease. States that she has been taking her medications regularly. She has been doing reasonably well, but then about 2 days ago, she started noticing left-sided chest pain, which then radiated across the anterior chest. It also did radiate down the left arm according to her. It felt like heaviness or tightness. She also describes it as a sharp pain. There is no typical history of orthopnea or PND. No edema of feet. No palpitation, claudication, dizziness or syncope. With these complaints, the patient was seen in the urgent care where the EKG was noted to be abnormal and so the patient was advised to come to the Emergency Room. PAST MEDICAL HISTORY: Positive for hypertension and COPD as mentioned. PAST SURGICAL HISTORY: Includes tonsillectomy and tubal ligation. SOCIAL HISTORY: The patient is a nonsmoker and nonalcoholic. ALLERGIES: None known. FAMILY HISTORY: Positive for hypertension. MEDICATIONS: As listed. REVIEW OF SYSTEMS: CARDIOVASCULAR: As described above. RESPIRATORY: The patient denies any history of wheezing or asthma. No GI or complaints at the present time. NEUROLOGIC: Grossly within normal limits. PHYSICAL EXAMINATION: GENERAL: This is a 68-year-old female, well-built, well-nourished, no acute distress at the present time. The patient is conscious, alert, oriented, afebrile. VITAL SIGNS: Normal and stable, although her blood pressure was markedly elevated here in the hospital. SKIN: Warm and dry. HEENT: Pupils reacting. NECK: Supple. Both carotids well palpable without any significant bruit. No JVD. CHEST: Lungs are clear. Distant breath sounds. HEART: S1, S2 heard well. Grade 1/6 systolic murmur noted. No diastolic murmur, no gallop rhythm. ABDOMEN: Soft and nontender. Bowel sounds well heard, normal. EXTREMITIES: No edema, no calf tenderness. Good pedal pulses. NEUROLOGICAL: Grossly within normal limits. RECTAL AND PELVIC: Not done at this time. IMPRESSION: 1. Hypertensive emergency. 2. Chest pain, questionable cause, rule out cardiac etiology. PLAN: This is a 68-year-old female with history of hypertension, who is presenting here with complaints of chest pain of 2 days' duration. At this time, the patient's examination is unremarkable. EKG did not show any acute changes. Her blood pressure is markedly elevated, but otherwise her vital signs are stable. So, our goal is to get the blood pressure under control. Then we will consider doing a thallium stress test to rule out any cardiac etiology for her chest pain, although it is very atypical. I reviewed the medications. Continue piperacillin 50 mg t.i.d., amlodipine 10 mg daily, clonidine 0.2 mg at bedtime, atorvastatin 40 mg daily. We will monitor blood pressure closely. Because of markedly elevated blood pressure, we could not do the stress test today. I have explained all this in detail to the patient. The patient expressed understanding. We will follow the patient along with you. JOB# [id number] SHAY/ABHINAV
[2019-04-24] MEDS: APRESOLINE PO SCH (05:12)
[2019-04-24] MEDS ORDERED: LEXISCAN IV ONE ×2 (06:52→07:42)
[2019-04-24] MEDS ORDERED: APRESOLINE PO SCH ×3 (10:37→16:00)
[2019-04-24] MEDS: NORVASC PO SCH (11:02)
[2019-04-24] MEDS: PEPCID PO SCH (11:02)
[2019-04-24] MEDS: ASPIRIN PO SCH (11:02)
[2019-04-24] MEDS: SODIUM CHLORIDE FLUSH SYRINGE 10 ML IV SCH (11:03)
--- NOTE | 2019-04-24 11:16 | Progress Note ---
Assessment and Plan S/p lexiscan MPI stress test this morning which was negative. Optimize BPs - hydralazine increased today per primary team. Currently stable cardiac status. Pt may discharge from cardiology standpoint. Recommend pt follow up in our office with Dr. Cruz within 1-2 weeks of discharge ([phone]). The patient has been seen in conjunction with Dr. Cruz who agrees with the assessment and plan of care. - Patient Problems (1) Chest pain Current Visit: Yes Status: Resolved (2) Uncontrolled hypertension Current Visit: Yes Status: Acute Subjective Date of service: 04/24/19 Principal diagnosis: cp;htn Interval history: pt for stress test. no current complaints. in SR. Objective Last Vital Signs Temp 98.5 F 04/24/19 07:29 Pulse 68 04/24/19 11:02 Resp 16 04/24/19 11:00 BP 171/76 04/24/19 11:02 Pulse Ox 97 04/24/19 11:00 - Physical Examination General: No Apparent Distress HEENT: Positive: PERRL, Normocephaly, Mucus Membranes Moist Neck: Positive: neck supple, trachea midline Cardiac: Positive: Reg Rate and Rhythm, S1/S2 Lungs: Positive: clear to auscultation Neuro: Positive: Grossly Intact Abdomen: Negative: Tender Skin: Negative: Rash Musculoskeletal: No Pain Extremities: Absent: edema - Imaging and Cardiology EKG: report reviewed, image reviewed - Telemetry EKG Rhythm: Sinus Rhythm
[2019-04-24 13:31] VITALS: BP 142/82
--- NOTE | 2019-04-24 22:37 | Treadmill Report ---
NUCLEAR CARDIOLOGY PERFUSION STUDY REASON FOR STUDY: Chest pain. READING PHYSICIAN: Dr. Ch. IMAGING PROTOCOL: IMAGING PROTOCOL: The patient received 10 mCi of Technetium 99m Tetrofosmin for resting image and 28 mCi of Technetium 99m Tetrofosmin for stress imaging. The imaging for the whole procedure was completed 30-90 minutes following the initial injection of Technetium 99m Tetrofosmin. The SPECT imaging in the 180 degree arc was performed in the right anterior oblique projection. Computerized reconstruction of the images was performed for analysis. IMAGING RESULTS: Normal cavity size from stress to rest. Normal distribution of radionuclide in the anterior, inferior, septal and apical regions. Gated SPECT, EF 56% with no wall motion abnormality. The patient infused Lexiscan with no EKG changes. SUMMARY: 1. Negative Lexiscan EKG. 2. Normal rest and stress myocardial perfusion scan. No significant ischemia. No wall motion abnormality, EF 56%. JOB# [id number] VRJose/ABHINAV
== END 2019-04-24 16:15 | disposition home or self-care (01) | DRG 392 ==
LOC: ED 09:27 → 4A 13:35
PROVIDERS: ADMIT Internal Medicine; ATTEND Internal Medicine
DX: K21.9 Gastro-esophageal reflux disease without esophagitis (principal); I16.1 Hypertensive emergency; I10 Essential (primary) hypertension; E66.9 Obesity, unspecified; J44.9 Chronic obstructive pulmonary disease, unspecified; Z68.34 Body mass index [BMI] 34.0-34.9, adult; Z98.51 Tubal ligation status; Z82.49 Family history of ischemic heart disease and other diseases of the circulatory system; Z91.040 Latex allergy status; Z91.011 Allergy to milk products; Z79.899 Other long term (current) drug therapy
CPT/HCPCS: 36415; 71046; 78452; 80048; 80053; 83036; 84484; 85025; 85379; 93005; 93010; 93017; 96374; G0378; A9270-GY; A9502; J0360; J1650; J2785

== ENCOUNTER 2019-06-14 03:03 | Emergency (ER) | payer MEDICARE ==
[2019-06-14 04:10] LABS: Basophils # (Auto) 0.1 K/mm3 (0.0-0.1); Basophils % (Auto) 0.8 % (0.0-1.8); Eosinophils # (Auto) 0.2 K/mm3 (0.0-0.4); Eosinophils % (Auto) 3.4 % (0.0-4.3); Hematocrit 40.1 % (30.3-42.9); Hemoglobin 13.2 gm/dl (10.1-14.3); Lymphocytes # (Auto) 1.9 K/mm3 (1.2-5.4); Lymphocytes % (Auto) 30.7 % (13.4-35.0); Mean Corpuscular HGB Conc 33 % (30-34); Mean Corpuscular Volume 88 fl (79-97); Monocytes # (Auto) 0.5 K/mm3 (0.0-0.8); Monocytes % (Auto) 8.4 % (0.0-7.3); Platelet Count 279 K/mm3 (140-440); Red Blood Count 4.55 M/mm3 (3.65-5.03); Red Cell Distribution Width 13.9 % (13.2-15.2)
[2019-06-14 04:22] LABS: INR 0.95 (0.87-1.13)
[2019-06-14 04:28] LABS: Alanine Aminotransferase 12 units/L (7-56); BUN/Creatinine Ratio 21; Blood Urea Nitrogen 19 mg/dL (7-17); Calcium 9.9 mg/dL (8.4-10.2); Hemolysis Index 8
--- NOTE | 2019-06-14 04:51 | Emergency Department Report ---
ED General Adult HPI - General Chief complaint: Nosebleed Stated complaint: NOSE BLEED Time Seen by Provider: 06/14/19 04:31 Source: patient Mode of arrival: Ambulatory Limitations: No Limitations - History of Present Illness Initial comments: Patient is a 68-year-old female that presents emergency room with complaints of nosebleed and high blood pressure. Patient states her blood pressure has been high because she has missed medications and been eating salty foods. Patient states her nose started to bleed tonight. Patient denies pain. Patient denies headache. Patient denies blurry vision. Patient denies chest pain or shortness of breath. Patient denies fever and chills. Patient denies cough. Patient states that just prior to arrival she took 2 tablets of 0.2 mg clonidine. Patient states her nosebleed has stopped while she was in the waiting room. Patient on the engine monitor in the exam room and her current blood pressure is 130/70. -: Sudden Severity scale (0 -10): 0 Consistency: now resolved Improves with: medication, rest Worsens with: movement Associated Symptoms: denies other symptoms. denies: confusion, chest pain, cough, diaphoresis, fever/chills, headaches, loss of appetite, malaise, nausea/vomiting, rash, seizure, shortness of breath, syncope, weakness Treatments Prior to Arrival: other - Related Data Previous Rx's Medication Instructions Recorded Last Taken Type Aspirin EC [Halfprin EC] 81 mg PO QDAY #30 tablet. 04/23/19 Unknown Rx Pantoprazole [Protonix] 40 mg PO QDAY #30 tablet 04/23/19 Unknown Rx hydrALAZINE [Apresoline TAB] 100 mg PO Q8HR #90 tab 04/24/19 Unknown Rx amLODIPine 10 mg PO DAILY #14 06/14/19 Unknown Rx cloNIDine [Catapres] 0.2 mg PO BID #28 tablet 06/14/19 Unknown Rx Allergies Allergy/AdvReac Type Severity Reaction Status Date / Time Latex, Natural Rubber Allergy Rash Verified 04/22/19 10:12 milk Allergy Unknown Verified 04/22/19 10:12 nickel Allergy Rash Verified 04/22/19 10:12 ED Review of Systems ROS: Stated complaint: NOSE BLEED Other details as noted in HPI Constitutional: denies: chills, fever Eyes: denies: eye pain, eye discharge, vision change ENT: denies: ear pain, throat pain Respiratory: denies: cough, shortness of breath, wheezing Cardiovascular: denies: chest pain, palpitations Endocrine: no symptoms reported Gastrointestinal: denies: abdominal pain, nausea, diarrhea Genitourinary: denies: urgency, dysuria, discharge Musculoskeletal: denies: back pain, joint swelling, arthralgia Skin: denies: rash, lesions Neurological: denies: headache, weakness, paresthesias Psychiatric: denies: anxiety, depression Hematological/Lymphatic: denies: easy bleeding, easy bruising ED Past Medical Hx - Past Medical History Previous Medical History?: Yes Hx Hypertension: Yes Hx CVA: No Hx Heart Attack/AMI: No Hx Congestive Heart Failure: No Hx Diabetes: No Hx Deep Vein Thrombosis: No Hx Pulmonary Embolism: No Hx GERD: No Hx Liver Disease: No Hx Renal Disease: No Hx Sickle Cell Disease: No Hx Arthritis: No Hx Headaches / Migraines: No Hx Seizures: No Hx Kidney Stones: No Hx Psychiatric Treatment: No Hx Asthma: No Hx COPD: Yes Hx Tuberculosis: No Hx Dementia: No Hx HIV: No Additional medical history: abnormal EKG, Lung problems - Surgical History Past Surgical History?: Yes Hx Coronary Stent: No Hx Open Heart Surgery: No Hx Pacemaker: No Hx Internal Defibrillator: No Hx Cholecystectomy: No Hx Appendectomy: No Hx Breast Surgery: No Additional Surgical History: TUBAL LIGATION. TONSILLECTOMY - Social History Smoking Status: Never Smoker Substance Use Type: None - Medications Home Medications: Home Medications Medication Instructions Recorded Confirmed Last Taken Type Aspirin EC [Halfprin EC] 81 mg PO QDAY #30 tablet. 04/23/19 Unknown Rx Pantoprazole [Protonix] 40 mg PO QDAY #30 tablet 04/23/19 Unknown Rx hydrALAZINE [Apresoline TAB] 100 mg PO Q8HR #90 tab 04/24/19 Unknown Rx amLODIPine 10 mg PO DAILY #14 06/14/19 Unknown Rx cloNIDine [Catapres] 0.2 mg PO BID #28 tablet 06/14/19 Unknown Rx ED Physical Exam - General Limitations: No Limitations General appearance: alert, in no apparent distress - Head Head exam: Present: atraumatic, normocephalic - Eye Eye exam: Present: normal appearance, PERRL Pupils: Present: normal accommodation - ENT ENT exam: Present: normal exam, normal orophraynx, mucous membranes moist, TM's normal bilaterally, normal external ear exam - Neck Neck exam: Present: normal inspection, full ROM. Absent: tenderness, meni ngismus, lymphadenopathy, thyromegaly - Respiratory Respiratory exam: Present: normal lung sounds bilaterally. Absent: respiratory distress, wheezes, rales, rhonchi - Cardiovascular Cardiovascular Exam: Present: regular rate, normal rhythm. Absent: systolic murmur, diastolic murmur, rubs, gallop - GI/Abdominal GI/Abdominal exam: Present: soft, normal bowel sounds. Absent: distended, tenderness, guarding - Rectal Rectal exam: Present: deferred - Extremities Exam Extremities exam: Present: normal inspection - Back Exam Back exam: Present: normal inspection - Neurological Exam Neurological exam: Present: alert, oriented X3 - Psychiatric Psychiatric exam: Present: normal affect, normal mood - Skin Skin exam: Present: warm, dry, intact, normal color. Absent: rash ED Course Vital Signs 06/14/19 06/14/19 03:13 04:54 Temperature 98.1 F 98 F Pulse Rate 116 H 76 Respiratory 14 18 Rate Blood Pressure 225/134 Blood Pressure 130/71 [Left] O2 Sat by Pulse 98 100 Oximetry - Reevaluation(s) Reevaluation #1: I rechecked the patient's blood pressure manually and it is 130/74. Patient's blood pressure also verified with engine monitor. I discussed all results with patient. Discussed plan of care with patient. She will be given refills of her Norvasc and her clonidine. Patient agrees with plan of care. Patient given discharge instructions. Patient voiced understanding of discharge instructions. 06/14/19 04:55 ED Medical Decision Making - Lab Data Result diagrams: 06/14/19 03:54 06/14/19 03:54 - Medical Decision Making Patient is a 68-year-old female that presents emergency room with complaints of nosebleed and elevated blood pressure. Patient's nosebleed secondary to elevated blood pressure and her pressure elevation is secondary to noncompliance and missed doses of medications. Patient is medically clear. Patient's labs unremarkable. Patient took clonidine 0.4 mg prior to arrival her nosebleed resolved prior to initial examination. Patient blood pressure prior to discharge 130/70. Patient given discharge instructions. - Differential Diagnosis nose bleed. Noncompliance. Elevated blood pressure. Critical care attestation.: If time is entered above; I have spent that time in minutes in the direct care of this critically ill patient, excluding procedure time. ED Disposition Clinical Impression: Uncontrolled hypertension, Bleeding nose, Noncompliance Hypertension Qualifiers: Hypertension type: essential hypertension Qualified Code(s): I10 - Essential (primary) hypertension Disposition: TO HOME OR SELFCARE Is pt being admited?: No Does the pt Need Aspirin: No Condition: Stable Instructions: Heart Healthy Diet (ED), How to Take a Blood Pressure (ED), DASH Eating Plan (ED), Low Sodium Diet (ED), Hypertension (ED) Additional Instructions: Patient to follow-up with primary care in 2-3 days. Patient to return to ER if condition worsens. Patient to take Tylenol when necessary for pain. Patient to rest. Patient to increase water. Patient to eat a low-salt diet. Patient to eat a heart healthy diet. Patient to monitor blood pressure at home and take her blood pressure log to her primary care follow-up. Prescriptions: amLODIPine 10 mg PO DAILY #14 cloNIDine [Catapres] 0.2 mg PO BID #28 tablet Referrals: JEF COELLO MD [Staff Physician] - 2-3 Days Time of Disposition: 04:53
[2019-06-14 04:55] VITALS: BP 130/71
== END 2019-06-14 05:30 | disposition home or self-care (01) ==
LOC: ED 03:03
DX: I10 Essential (primary) hypertension (principal); Z91.19 Patient's noncompliance with other medical treatment and regimen; R04.0 Epistaxis; Z98.51 Tubal ligation status; Z98.890 Other specified postprocedural states; Z79.899 Other long term (current) drug therapy; Z91.040 Latex allergy status; Z91.011 Allergy to milk products; Z88.8 Allergy status to other drugs, medicaments and biological substances
CPT/HCPCS: 36415; 80053; 85025; 85610; 99283

== ENCOUNTER 2019-09-23 14:31 | Emergency (ER) | payer MEDICARE ==
[2019-09-23 14:41] VITALS: BP 215/124
== END 2019-09-23 16:00 | disposition left against medical advice (07) ==
LOC: ED 14:31
DX: Z53.21 Procedure and treatment not carried out due to patient leaving prior to being seen by health care provider (principal)